=== PATIENT | male | born 1985 | race Native Hawaiian/Other Pacific Islander ===

== ENCOUNTER 2025-08-01 10:10 | Outpatient (REF) | payer OTHER, SELFPAY ==
--- OUTSIDE RECORDS SUMMARY | 2025-08-01 09:30 | XMS_ITS | Encounter Summary ---
Author Organization [employer] Address [address] [facility] [address] [place] [address] Care Team Providers Care Speed Runner Name Role Phone Shannan Kirby MD Primary Care Provide r Reason for Referral * Hospital - Outpatient (Routine) - Authorized Specialty Diagnoses / Procedures Referred By Contac t Referred To Contact Diagnoses Loud snoring Hypersomnia Procedures Home sleep test Shannan Kirby MD [address] [place] [phone] Phone: tel: fax: Sleep Medicine Service [facility] [address], [address] [place] [address] Phone: tel: fax: Referral ID Status Reason Start Date Expiration Date V isits Requested Visits Authorized [id number] Authorized 08/01/2025 08/01/2026 1 1 Encounter Details Date Type Department Care Team (Latest Contact Info) Description 08/01/2025 9:30 AM EDT Office Visit [facility] [address] [place] [phone] Shannan Kirby MD [address] [place] [phone] Chronic nonintractable headache, unspecified headache type (Primary Dx); Loud snoring; Hypersomnia; Heartburn; Dietary counseling; Exercise counseling; Encounter for immunization Social History Tobacco Use Types Packs/Day Years Used Date Smoking Tobacco: Never Smokeless Tobacco: Never Tobacco Cessation:Counseling Given: Not Answered Depression Answer Date Recorded Patient Health Questionnaire-9 Score 6 08/01/2025 Patient Health Questionnaire-9 Score 6 08/01/2025 Last PHQ-9: Questionnaire Data Not on file 0 08/01/2025 Housing Stability Answer Date Recorded What is your housing situation today? I have [place] 07/24/[address] you li ve. Do you have problems with any of the following? None of the above 07/24/2025 Food Insecurity Answer Date Recorded Within the past 12 months, y ou worried that your food would run out before you got money to buy more: Never True 07/24/2025 Within the past 12 months,th e food you bought just didn't last and you didn't have enough money to get more: Never True 08/2025 Transportation Answer Date Recorded In the past 12 months, has l ack of transportation kept you from medical appts, meetings, work or from getting things needed for daily living? No 07/24/2025 Utilities Answer Date Recorded In the past 12 months, has t he electric, gas, oil or water company threatened to shut off services in your home? No 07/24/2025 Depression Answer Date Recorded Patient Health Questionnaire-2 Score 1 08/01/2025 Internet Access Answer Date Recorded Internet Access Q1 Yes 07/24/2025 Internet Access Q2 Not on file 07/24/2025 Sex and Gender Information Value Date Recorded Sex Assigned at Male 05/20/2025 2:56 PM EDT Legal Sex Male 2:56 PM EDT Gender Identity Choose not to disclose 3:03 PM EDT Sexual Orientation Don't know 07/30/2025 3: 03 PM EDT documented as of this encounter Last Filed Vital Signs Vital Sign Reading Time Taken Comments Blood Pressure 120/84 08/01/2025 9:30 AM EDT Pulse 76 08/01/2025 9:30 AM EDT Temperature 36.6 C (97.9 F) 08/01/2025 9:30 AM EDT Respiratory Rate 14 08/01/2025 9:30 AM EDT Oxygen Saturation 99% 08/01/2025 9:30 AM EDT Inhaled Oxygen Concentration - - Weight 74.9 kg (165 lb 3.2 oz) 08/01/2025 9:30 A M EDT Height 167.6 cm (5' 6 ) 08/01/2025 9:30 AM EDT Body Mass Index 26.66 08/01/2025 9:30 AM EDT documented in this encounter Functional Status * Over the past 2 weeks, how often have you been bothered by any of the following problems? Question Answer Date of Assessment Author Patient Health Questionnaire-2 Score 1 07/15 10:09 AM Sophie Evans MA * Little interest or pleasure in doing things Answer Date of Assessment Author Several days 08/01/2025 10:09 AM Azar Evans [place] * Feeling down, depressed, or hopeless Answer Date of Assessment Author Not at all 08/01/2025 10:09 AM Azar Evans [place] * Trouble falling or staying asleep, or sleeping too much Answer Date of Assessment Author Nearly every day 08/01/2025 10:09 AM Sophie Evans MA * Feeling tired or having little energy Answer Date of Assessment Author More than half the days 08/01/2025 10:09 AM Sophie Evans MA * Poor appetite or overeating Answer Date of Assessment Author Not at all 08/01/2025 10:09 AM Azar Evans [place] * Feeling bad about yourself - or that you are a failure or have let yourself or your family down Answer Date of Assessment Author Not at all 08/01/2025 10:09 AM Azar Evans [place] * Trouble concentrating on things, such as reading the newspaper or watching television Answer Date of Assessment Author Not at all 08/01/2025 10:09 AM Azar Evans MA * Moving or speaking so slowly that other people could have noticed? Or the opposite - being so fidgety or restless that you have been moving around a lot more than usual. Answer Date of Assessment Author Not at all 08/01/2025 10:09 AM Azar Evans MA * Thoughts that you would be better off or hurting yourself in some way Answer Date of Assessment Author Not at all 08/01/2025 10:09 AM Azar Evans MA * Patient Health Questionnaire-9 Score Answer Date of Assessment Author 6 08/01/2025 10:09 AM Azar Evans MA * How difficult have these problems made it for you to do your work, take care of things at home, or get along with other people? Answer Date of Assessment Author Not difficult at all 08/01/2025 10:09 AM EDT Sophie Sorenson MA * Over the last 2 weeks, how often have you been bothered by any of the following problems? Question Answer Date of Assessment Author Feeling nervous, anxious, or on edge 0 07/15 10:09 AM EDT Sophie Soto MA Not being able to stop or co ntrol worrying 0 08/01/2025 10:09 AM EDT Sophie Soto MA Worrying too much about diff erent things 0 08/01/2025 10:09 AM EDT Sophie Soto MA Trouble relaxing 1 08/01/2025 10:09 AM EDT Sophie Soto MA Being so restless that it is hard to sit still 0 08/01/2025 10:09 AM EDT Sophie Soto MA Becoming easily annoyed or irritable 2 07/15 10:09 AM EDT Sophie Soto MA Feeling afraid as if somethi ng awful might happen 1 08/01/2025 10:09 AM SHAMAT Sophie Soto MA DANNIE-7 Total Score 4 08/01/2025 10:09 AM SHAMAT Sophie Soto MA documented as of this encounter Progress Notes * Shannan Mackay MD - 08/01/2025 9:30 AM EDT SUBJECTIVE: David Moreau is a 40 y.o. year old adult who presents for New Patient . Occupation: maintenance Lives with:girlfriend - EtOH occasionally on holidays and birthdays - smoking cigarettes denies - recreational drug use denies Diet:regular Exercise:sedentary Surgeries/Hospitalizations:eye lasik both eyes PMHx: chronic headaches (takes ibuprofen or acetaminophen if needed) FMHx:none Immunizations: Tdap today Acute Concerns: Patient reports girlfriend complains of his snoring, he reports fatigue during the day Patient reports sometimes he has on and off heartburn, he also had some constipation that resolved Social History Social History Narrative Not on file Problem List[1] Family History[2] Review of Systems Constitutional: Negative. HENT: Negative. Respiratory: Negative. Cardiovascular: Negative. Gastrointestinal: Negative. OBJECTIVE: Vitals: 08/01/25 0930 BP: 120/84 BP Location: Left arm Patient Position: Sitting BP Cuff Size: Adult Pulse: 76 Resp: 14 Temp: 97.9 ??F (36.6 ??C) TempSrc: Oral SpO2: 99% Weight: 165 lb 3.2 oz (74.9 kg) Height: 5' 6 (1.676 m) Physical Exam Constitutional: Appearance: Normal appearance. Cardiovascular: Rate and Rhythm: Normal rate and regular rhythm. Pulmonary: Effort: Pulmonary effort is normal. Breath sounds: Normal breath sounds. Abdominal: General: Abdomen is flat. Palpations: Abdomen is soft. Tenderness: There is abdominal tenderness in the epigastric area. Musculoskeletal: Right lower leg: No edema. Left lower leg: No edema. Neurological: Mental Status: David is alert. Follow Up: Follow up for 4-6 weeks televisit review of labs . Medications Ordered Prior to Encounter[3] Problem List Items Addressed This Visit Loud snoring Relevant Orders Home sleep test Hypersomnia Relevant Orders Home sleep test Chronic headaches - Primary Likely multifactorial, possibly tension headaches versus INGRID? Advised to continue with acetaminophen and ibuprofen if needed Blood work and sleep studies ordered today Relevant Orders CBC auto differential Comprehensive Metabolic Panel Hemoglobin A1c HIV-1/2 Antigen and Antibodies, Fourth Generation, with Reflexes Hepatitis C Antibody with Reflex to HCV, RNA, Quantitative, Real-Time PCR Lipid Panel, Standard Vitamin D, 25-Hydroxy, Total, Immunoassay TSH with Reflex to Free T4 Hepatitis B Surface Antibody, Qualitative Hepatitis B surface antigen, EIA Hepatitis B Core Antibody, Total Heartburn I advise patient to avoid NSAIDs, spicy and acid food, I advise to eat at the same time every day, I advise to elevate the head of the bed and take medications as prescribe I prescribed famotidine to be taken as needed, report back to me if problem persist or worse Relevant Medications famotidine (Pepcid) 20 MG tablet Other Visit Diagnoses Dietary counseling Exercise counseling [1] Patient Active Problem List Diagnosis Loud snoring Hypersomnia Chronic headaches Heartburn [2] No family history on file. [3] No current outpatient medications on file prior to visit. No current facility-administered medications on file prior to visit. documented in this encounter Miscellaneous Notes * Assessment & Plan Note - Shannan Mackay MD - 08/01/2025 10:07 AM EDT Associated Problem(s): Heartburn I advise patient to avoid NSAIDs, spicy and acid food, I advise to eat at the same time every day, I advise to elevate the head of the bed and take medications as prescribe I prescribed famotidine to be taken as needed, report back to me if problem persist or worse * Assessment & Plan Note - Shannan Mackay MD - 08/01/2025 10:06 AM EDT Associated Problem(s): Chronic headaches Likely multifactorial, possibly tension headaches versus INGRID? Advised to continue with acetaminophen and ibuprofen if needed Blood work and sleep studies ordered today documented in this encounter Plan of Treatment Scheduled Orders Name Type Priority Associated Diagnoses Orde r Schedule Home sleep test Sleep Center Routine Loud snoring Hypersomnia Expected: 08/01/2025 (Approximate), Expires: 08/01/2026 Comprehensive Metabolic Panel Lab Routine Chronic nonintractable headache, unspecified headache type Expected: 08/01/2025 (Approximate), Expires: 08/01/2026 Hemoglobin A1c Lab Routine Chronic nonintractable headache, unspecified headache type Expected: 08/01/2025 (Approximate), Expires: 08/01/2026 HIV-1/2 Antigen and Antibodies, Fourth Generation, with Reflexes Lab Routine Chronic nonintractable headache, unspecified headache type Expected: 08/01/2025 (Approximate), Expires: 08/01/2026 Hepatitis C Antibody with Reflex to HCV, RNA, Quantitative, Real-Time PCR Lab Routine Chronic nonintractable headache, unspecified headache type Expected: 08/01/2025, Expires: 08/01/2026 Lipid Panel, Standard Lab Routine Chronic nonintractable headache, unspecified headache type Expected: 08/01/2025 (Approximate), Expires: 08/01/2026 Vitamin D, 25-Hydroxy, Total, Immunoassay Lab Routine Chronic nonintractable headache, unspecified headache type Expected: 08/01/2025 (Approximate), Expires: 08/01/2026 TSH with Reflex to Free T4 Lab Routine Chronic nonintractable headache, unspecified headache type Expected: 08/01/2025 (Approximate), Expires: 08/01/2026 Hepatitis B Surface Antibody, Qualitative Lab Routine Chronic nonintractable headache, unspecified headache type Expected: 08/01/2025 (Approximate), Expires: 08/01/2026 Hepatitis B surface antigen, EIA Lab Routine Chronic nonintractable headache, unspecified headache type Expected: 08/01/2025 (Approximate), Expires: 08/01/2026 Hepatitis B Core Antibody, Total Lab Routine Chronic nonintractable headache, unspecified headache type Expected: 08/01/2025 (Approximate), Expires: 08/01/2026 documented as of this encounter Procedures Procedure Name Priority Date/Time Associated Diagnosis Comments CBC WITH AUTO DIFFERENTIAL Routine 08/01/2025 10:22 AM EDT Chronic nonintractable headache, unspecified headache type documented in this encounter Results * (ABNORMAL) CBC auto differential (08/01/2025 10:22 AM EDT) White Blood Count 4.4(L) 4.8 - 10.8 X10*3/uL [facility] Red Blood Count 5.23 4.60 - 5.80 X10*6/uL [facility] Hemoglobin 15.6 14.0 - 18.0 g/dl [facility] Hematocrit 45.2 42.0 - 52.0 % [facility] Mean Corpuscular Volume 86.4 80.0 - 98.0 fL [facility] Mean Corpuscular Hemoglobin 29.8 27.0 - 33.0 pg [facility] Mean Corpuscular HGB Conc 34.5 31.0 - 36.0 g/dl [facility] Red Cell Distribution Width 12.1 11.0 - 16.0 % [facility] Platelet Count 229 160 - 400 X10*3/uL [facility] Mean Platelet Volume 10.2 9.4 - 12.4 fL [facility] Neutrophils Percent Auto 56.2 45 - 73 % [facility] Imm Gran Pct Auto 0.5(H) 0.0 - 0.4 % [facility] Lymphocytes Percent Auto 33.7 20 - 40 % [facility] Monocytes Percent Auto 8.0 2 - 11 % [facility] Eosinophils Percent Auto 1.1 0 - 4 % [facility] Basophils Percent Auto 0.5 0 - 2 % [facility] NRBC Pct Auto 0.0 0.0 - 0.2 /100WBC [facility] Neutrophils Absolute Auto 2.5 2.0 - 8.3 x10*3/uL [facility] Imm Gran Abs Auto 0.02 0.00 - 0.03 X10*3/uL [facility] Lymphocytes Absolute Auto 1.5 1.2 - 4.9 X10*3/uL [facility] Monocytes Absolute Auto 0.4 0.1 - 1.2 X10*3/uL [facility] Eosinophils Absolute Auto 0.1 0.0 - 0.4 X10*3/uL [facility] Basophils Absolute Auto 0.0 0.0 - 0.2 X10*3/uL [facility] NRBC Abs Auto 0.000 0.0 - 0.012 X10*3/uL [facility] Blood Venous blood specimen / Unknown 08/01/2025 10:22 AM EDT 08/01/2025 11:49 AM EDT us Shannan Mackay MD LAB BLOOD ORDERABLES Final Result [facility] [address] [place] [address] [phone] documented in this encounter Visit Diagnoses Diagnosis Chronic nonintractable headache, unspecified headache type- Primary Loud snoring Hypersomnia Hypersomnia, unspecified Heartburn Dietary counseling Dietary surveillance and counseling Exercise counseling Encounter for immunization documented in this encounter Additional Health Concerns Assessment Noted Time PHQ-9 Depression Total Score: 6 08/01/20 25 10:09 AM EDT documented as of this encounter Care Teams Speed Runner Relationship Specialty Start Date End Date Shannan Kirby MD [address] [place] [phone] PCP - General Internal Medicine 08/01/25 documented as of this encounter
[2025-08-01 11:53] LABS: MANUAL DIFF FLAG NO
[2025-08-01 11:58] LABS: Hematocrit 45.2 % (42.0-52.0); Hemoglobin 15.6 g/dl (14.0-18.0); Imm Gran Abs Auto 0.02 X10*3/uL (0.00-0.03); Imm Gran Pct Auto 0.5 % (0.0-0.4); Lymphocytes Absolute Auto 1.5 X10*3/uL (1.2-4.9); Mean Corpuscular HGB Conc 34.5 g/dl (31.0-36.0); Mean Corpuscular Hemoglobin 29.8 pg (27.0-33.0); Mean Corpuscular Volume 86.4 fL (80.0-98.0); NRBC Abs Auto 0.000 X10*3/uL (0.0-0.012); NRBC Pct Auto 0.0 /100WBC (0.0-0.2); Platelet Count 229 X10*3/uL (160-400); Red Blood Count 5.23 X10*6/uL (4.60-5.80); White Blood Count 4.4 X10*3/uL (4.8-10.8)
--- OUTSIDE RECORDS SUMMARY | 2025-08-01 12:12 | XMS_ITS | Encounter Summary ---
Author Organization [employer] Address [address] [place] [address] Care Team Providers Care Outlet Manager Name Role Phone Shannan Kirby MD Primary Care Provide Encounter Details Date Type Department Care Team (Latest Contact Info) Description 08/01/2025 Travel Social History Tobacco Use Types Packs/Day Years Used Date Smoking Tobacco: Never Smokeless Tobacco: Never Depression Answer Date Recorded Patient Health Questionnaire-9 [...] PM EDT documented as of this encounter Functional Status * Over the past 2 weeks, how often have you been bothered by any of the following problems? Question Answer Date of Assessment Author Patient Health Questionnaire-2 Score 1 07/15 10:09 AM SHAMAT Sophie Soto MA * Little interest or pleasure in doing things Answer Date of Assessment Author Several days 08/01/2025 10:09 AM EDT Azar Soto MA * Feeling down, depressed, or hopeless [...] of Assessment Author 6 08/01/2025 10:09 AM EDT Azar Soto MA * How difficult have these problems [...] annoyed or irritable 2 07/15 10:09 AM SHAMAT Sophie Soto MA Feeling afraid as if somethi ng awful might happen 1 08/01/2025 10:09 AM EDT Sophie Soto MA DANNIE-7 Total Score 4 08/01/2025 10:09 AM EDT Sophie Soto MA documented as of this encounter Plan of Treatment Not on file documented as of this encounter Visit Diagnoses Not on filedocumented in this encounter Additional Health Concerns Assessment Noted Time PHQ-9 Depression Total Score: 6 08/01/20 10:09 AM EDT documented as of this encounter Care Teams Outlet Manager Relationship Specialty Start Date End Date Shannan Kirby MD [address] [place] [address] PCP - General Internal Medicine 08/01/25 documented as of this encounter
--- OUTSIDE RECORDS SUMMARY | 2025-08-01 12:12 | XMS_ITS | Clinical Summary ---
Author Organization [employer] Address [address] [facility] [address] [place] [address] Care Team Providers Care Records And Information Manager Name Role Phone Shannan Kirby MD Primary Care Provide r Allergies No known active allergies Medications famotidine (Pepcid) 20 MG tabletIndication s:Heartburn Take 1 tablet (20 mg) by mouth 2 times daily. 60 tablet 2 08/01/2025 Active Active Problems Problem Noted Date Diagnosed Date Loud snoring 08/01/2025 Hypersomnia 08/01/2025 Chronic headaches 08/01/2025 Assessment & Plan (08/01/2025 10:06 AM EDT): Likely multifactorial, possibly tension headaches versus INGRID? Advised to continue with acetaminophen and ibuprofen if needed Blood work and sleep studies ordered today Heartburn 08/01/2025 Assessment & Plan (08/01/2025 10:07 AM EDT): I advise patient to avoid NSAIDs, spicy and acid food, I advise to eat at the same time every day, I advise to elevate the head of the bed and take medications as prescribe I prescribed famotidine to be taken as needed, report back to me if problem persist or worse Encounters Date Type Department Care Team Description 08/01/2025 9:30 AM EDT Office Visit [facility] [address] [place] [address] Shannan Kirby MD Chronic nonintractable headache, unspecified headache type (Primary Dx); Loud snoring; Hypersomnia; Heartburn; Dietary counseling; Exercise counseling; Encounter for immunization 08/01/2025 Travel 07/31/2025 Telephone [facility] [address] [place] [address] Shannan Kirby MD Chart Prep 07/29/2025 Travel 07/24/2025 Patient Outreach [facility] [address] [facility] [place] [address] Shannan Kirby MD Pre-visit Planning (SDOH screening negative and tobacco screening negative) 05/10/2025 Telephone [facility] [address] [place] [address] Shannan Kirby MD new patient visit from Last 3 Months Immunizations Immunization Administration Dates Next Due Pfizer Covid-19 Vaccine 12+ 05/13/2021, Tdap 08/01/2025 Social History Tobacco Use Types Packs/Day Years [...] Don't know 07/30/2025 3: 03 PM EDT Last Filed Vital Signs Vital Sign Reading [...] Mass Index 26.66 08/01/2025 9:30 AM EDT Plan of Treatment Health Maintenance Due Date Last Done Comments HIV Screening 1983 Lipid Panel 1983 Alcohol/Substance Use Screening 1995 Family Planning (PISQ) 1998 HPV Vaccines (1 - 3-dose series) 1998 Hepatitis C Screening 2001 Hepatitis B Vaccines (1 of 3 - 19+ 3-dose series) 2002 COVID-19 Vaccine ( - 2024-2 6 season) 2025 05/13/2021, 04/22/2021 Influenza Vaccine (#1) 2025 SDOH Screening 07/24/2026 07/24/2025 Disability Screening 07/29/2026 07/29/2025 Depression Screening 08/01/2026 08/01/2025, 08/01/2025 Tobacco Screening 08/01/2026 08/01/2025 Zoster Vaccines (1 of 2) 2033 DTaP/Tdap/Td Vaccines (2 - T d or Tdap) 08/01/2035 08/01/2025 RSV Patients and Patients Aged 60 years or older (1 - 1-dose 75+ series) 2058 HIB Vaccines Aged Out No longer eligi ble based on patient's age to complete this topic Hepatitis A Vaccines Aged Out No long er eligible based on patient's age to complete this topic IPV Vaccines Aged Out No longer eligi ble based on patient's age to complete this topic Meningococcal B Vaccine Aged Out No l onger eligible based on patient's age to complete this topic Meningococcal Vaccine Aged Out No pema jose a eligible based on patient's age to complete this topic Pneumococcal Vaccine: Pediatrics (0 to 5 Years) and At-Risk Patients (6 to 49) Years Aged Out No longer eligible b ased on patient's age to complete this topic RSV under 20 months Aged Out No longe r eligible based on patient's age to complete this topic Rotavirus Vaccines Aged Out No longer eligible based on patient's age to complete this topic Procedures Procedure Name Priority Date/Time Associated Diagnosis Comments CBC WITH AUTO DIFFERENTIAL Routine 08/01/2025 10:22 AM EDT Chronic nonintractable headache, unspecified headache type from Last 3 Months Results * (ABNORMAL) CBC auto differential (08/01/2025 10:22 AM EDT) White Blood Count 4.4(L) 4.8 - 10.8 X10*3/uL [facility] Red Blood Count 5.23 4.60 - 5.80 X10*6/uL [facility] Hemoglobin 15.6 14.0 - 18.0 g/dl [facility] Hematocrit 45.2 42.0 - 52.0 % [facility] Mean Corpuscular Volume 86.4 80.0 - 98.0 fL [facility] Mean Corpuscular Hemoglobin 29.8 27.0 - 33.0 pg [facility] Mean Corpuscular HGB Conc 34.5 31.0 - 36.0 g/dl [facility] Red Cell Distribution Width 12.1 11.0 - 16.0 % [facility] Platelet Count 229 160 - 400 X10*3/uL [facility] Mean Platelet Volume 10.2 9.4 - 12.4 fL [facility] Neutrophils Percent Auto 56.2 45 - 73 % [facility] Imm Gran Pct Auto 0.5(H) 0.0 - 0.4 % [facility] Lymphocytes Percent Auto 33.7 20 - 40 % [facility] Monocytes Percent Auto 8.0 2 - 11 % [facility] Eosinophils Percent Auto 1.1 0 - 4 % [facility] Basophils Percent Auto 0.5 0 - 2 % [facility] NRBC Pct Auto 0.0 0.0 - 0.2 /100WBC [facility] Neutrophils Absolute Auto 2.5 2.0 - 8.3 x10*3/uL [facility] Imm Gran Abs Auto 0.02 0.00 - 0.03 X10*3/uL [facility] Lymphocytes Absolute Auto 1.5 1.2 - 4.9 X10*3/uL [facility] Monocytes Absolute Auto 0.4 0.1 - 1.2 X10*3/uL [facility] Eosinophils Absolute Auto 0.1 0.0 - 0.4 X10*3/uL [facility] Basophils Absolute Auto 0.0 0.0 - 0.2 X10*3/uL [facility] NRBC Abs Auto 0.000 0.0 - 0.012 X10*3/uL [facility] Blood Venous blood specimen / Unknown 08/01/2025 10:22 AM EDT 08/01/2025 11:49 AM EDT us Shannan Mackay MD LAB BLOOD ORDERABLES Final Result [facility] [address] [place] [address] [phone] from Last 3 Months [id number] Care Teams Records And Information Manager Relationship Specialty Start Date End Date Shannan Kirby MD [address] [place] [address] PCP - General Internal Medicine 08/01/25
--- OUTSIDE RECORDS SUMMARY | 2025-08-01 12:12 | XMS_ITS | Encounter Summary ---
Author Organization [employer] Address [address] [place] [address] Care Team Providers Care Pick And Shovel Man Name Role Phone Unavailable Primary Care Provider Unavailabl e Encounter Details Date Type Department Care Team (Latest Contact Info) Description 07/29/2025 Travel Social History Tobacco Use Types Packs/Day Years Used Date Smoking Tobacco: Never Assessed Housing Stability Answer Date Recorded What is [...] off services in your home? No 07/24/2025 Internet Access Answer Date Recorded Internet Access Q1 Yes 07/24/2025 Internet Access Q2 Not on file 07/24/2025 Sex and Gender Information Value Date Recorded Sex Assigned at Male 05/20/2025 2:56 PM EDT Legal Sex Male 2:56 PM EDT Gender Identity Choose not to disclose 3:03 PM EDT Sexual Orientation Don't know 07/30/2025 3: 03 PM EDT documented as of this encounter Plan of Treatment Not on file documented as of this encounter Visit Diagnoses Not on filedocumented in this encounter
--- OUTSIDE RECORDS SUMMARY | 2025-08-01 12:12 | XMS_ITS | Encounter Summary ---
Author Organization [employer] Address [address] [place] [address] Care Team Providers Care Assistant Accounting Manager Name Role Phone Unavailable Primary Care Provider Unavailabl e Reason for Visit * Reason Onset Date Comments Chart Prep 07/31/2025 Encounter Details Date Type Department Care Team (Late st Contact Info) Description 07/31/2025 Telephone [facility] [address] [place], [place] [phone] Shannan Kirby MD [address] [place], [place] [phone] Chart Prep Social History Tobacco Use Types Packs/Day Years Used Date Smoking Tobacco: Never Assessed Depression Answer Date Recorded Patient Health Questionnaire-9 [...] PM EDT documented as of this encounter Miscellaneous Notes * Telephone Encounter - Luly Celeste MA - 07/31/2025 10:53 AM EDT Chart Prep Labs: not applicable Images: not applicable Referrals: not applicable Vaccines due: Covid, Flu, Tdap, Hep B, and HPV Screenings: HIV Screening and Hepatitis C Screening Overdue care gaps: SBIRT, PHQ-9, and DANNIE-7 documented in this encounter Plan of Treatment Not on file documented as of this encounter Visit Diagnoses Not on filedocumented in this encounter
[2025-08-01 12:15] LABS: Hemoglobin A1C 134.2440 umol/L; Total Hemoglobin (HGBA1C) 4091.6431 umol/L
[2025-08-01 12:34] LABS: Alanine Aminotransferase 28 U/L (0-40); Albumin Level 4.8 g/dL (3.5-5.0); Alkaline Phosphatase 72 U/L (39-117); Anion Gap 10 (12-20); Aspartate Amino Transferase 24 U/L (5-37); Blood Urea Nitrogen 16 mg/dL (9-16); Calcium 9.3 mg/dL (8.4-10.2); Carbon Dioxide 31 mmol/L (22-29); Chloride 103 mmol/L (96-108); Cholesterol 256 mg/dL (<200); Estimated Glomerular Filt Rate > 60; HDL Cholesterol 27 mg/dL (>40); Potassium 4.0 mmol/L (3.3-5.1); Sodium 140 mmol/L (135-145); Total Protein 7.2 g/dL (6.5-8.0); Triglycerides 152 mg/dL (<150)
[2025-08-01 12:57] LABS: HBS Num1 0.00 mIU/mL (0-7.99); HBc Num1 0.05 S/CO (0.00-0.79); HBsAGNum1 0.46 S/CO (0.00-0.99); HIV Num 1 0.06 S/CO (0.00-0.99); Hepatitis B Surface Antigen Negative (Negative); ~HepC Num1 0.19 S/CO (0.00-0.79); ~Hepatitis B Surface Antibody NONREACTIVE (Nonreactive); ~Hepatitis C Antibody Nonreactive (Nonreactive)
== END 2025-08-01 10:11 | disposition home or self-care (01) ==
LOC: HO.HHCL 10:10
PROVIDERS: PCP Internal Medicine; Visit Provider Internal Medicine
DX: R51.9 Headache, unspecified (principal); G89.29 Other chronic pain; Z13.1 Encounter for screening for diabetes mellitus; Z13.6 Encounter for screening for cardiovascular disorders; Z11.4 Encounter for screening for human immunodeficiency virus [HIV]
CPT/HCPCS: 36415; 80053; 80061; 82306; 83036; 84443; 85025; 86704; 86706; 86803; 87340; 87389